=== PATIENT | female | born 1970 | race Asian ===

== ENCOUNTER 2020-02-20 04:15 | Inpatient (IN) | payer OTHER ==
[2020-02-19 15:24] VITALS: BMI 27.3
--- OUTSIDE RECORDS SUMMARY | 2020-02-20 04:18 | XMS ---
:1970 [facility] Support Name Relationship Address Phone [facility] Unavailable [phone] [place] [address] [facility] [place] [address] PAUL FRAZIER [phone] [place] [address] Re-disclosure Warning The records that you are about to access may contain information from federally- assisted alcohol or drug abuse programs. If such information is present, then the following federally mandated warning applies: This information has been disclosed to you from records protected by federal confidentiality rules (42 CFR part 2). The federal rules prohibit you from making any further disclosure of this information unless further disclosure is expressly permitted by the written consent of the person to whom it pertains or as otherwise permitted by 42 CFR part 2. A general authorization for the release of medical or other information is NOT sufficient for this purpose. The Federal rules restrict any use of the information to criminally investigate or prosecute any alcohol or drug abuse patient.The records that you are about to access may contain highly sensitive health information, the redisclosure of which is protected by Article 27-F of the [facility] Public Health law. If you continue you may haveaccess to information: Regarding HIV / AIDS; Provided by facilities licensed or operated by the [facility] Office of Mental Health; or Provided by the [facility] Office for People With Developmental Disabilities. If such information is present, then the following [facility] mandated warning applies: This information has been disclosed to you from confidential records which are protected by state law. State law prohibits you from making any further disclosure of this information without the specific written consent of the person to whom it pertains, or as otherwise permitted by law. Any unauthorized further disclosure in violation of state law may result in a fine or mcfp sentence or both. A general authorization for the release of medical or other information is NOT sufficient authorization for further disclosure. Insurance Providers Payer name Policy type Policy ID Covered Covered libertarian's Policy P abimbola / Coverage libertarian ID relationship to [facility] [employer] ormation type fraser LOCAL [id number] - [id number] [facility] Results ID Date Data Source [id number] 02/16/2020 11:15:00 AM EDT [facility] Name Value Range Interpretation Description Data Sup porting Code Source(s) Document(s ) SARS [facility] coronavirus 2 RNA This lab was ordered by [facility] and reported by [facility]. Procedure
[2020-02-20] MEDS ORDERED: ROCURONIUM BROMIDE 50 MG/5 ML SYRINGE ONE (07:43)
[2020-02-20] MEDS ORDERED: PROPOFOL 20 ML ONE ×2 (07:43)
[2020-02-20] MEDS ORDERED: ROPIVACAINE HCL 0.5% 30ML VIAL ONE (07:51)
[2020-02-20] MEDS ORDERED: ONDANSETRON 4 MG/2 ML VIAL IVPUSH PRN ×2 (07:52→07:54)
[2020-02-20] MEDS ORDERED: PROMETHAZINE HCL 25 MG/1 ML VIAL IVPUSH PRN (07:52)
[2020-02-20] MEDS ORDERED: PROMETHAZINE HCL 25 MG/1 ML VIAL IVPB PRN (07:54)
[2020-02-20] MEDS ORDERED: DEXAMETHASONE SOD PHOSPHATE 4 MG/1 ML VIAL IVPUSH PRN (07:54)
[2020-02-20] MEDS ORDERED: MIDAZOLAM HCL 2 MG/2 ML SINGLE DOSE VIAL ONE ×2 (07:55)
[2020-02-20] MEDS ORDERED: LACTATED RINGERS SOLUTION 1,000 ML IV SCH (08:00)
[2020-02-20] MEDS ORDERED: HYDROmorphone *PCA* 10MG/50ML DISP.SYRIN PCA SCH (08:00)
--- NOTE | 2020-02-20 08:13 | HP ---
Admitting History and Physical - Primary Care Physician PCP: Jerald Francisco - Admission Chief Complaint: pain, menorrhagia, fibroids History of Present Illness: same History Source: Patient Limitations to Obtaining History: No Limitations - Past Medical History DISTRICT RANGER: No: Alzheimer's, CVA, Dementia, Migraine, Multiple Sclerosis, Peripheral Neuropathy, Parkinson's, Seizure, Syncope, TIA, Vertigo, Other Cardiovascular: No: AFIB, Aneurysm, Aortic Insufficiency, Aortic Stenosis, CAD, CHF, Deep Vein Thrombosis, HTN, Hyperlipdemia, VA, Mitral Insufficiency, Mitral Stenosis, Murmur, Pulmonary Hypertension, Other Pulmonary: No: Asthma, Bronchitis, Cancer, COPD, O2 Dependent, Pneumonia, Previously Intubated, Pulmonary Embolus, Pulmonary Fibrosis, Sleep Apnea, Other Gastrointestinal: No: Ascites, Cancer, Constipation, Crohn's Disease, Diverticulitis, Diverticulosis, Esophageal Varices, Gastritis, GERD, GI Bleed, Hemorrhoids, Hiatal Hernia, Inflamatory Bowel Disease, Irritable Bowel Disease, Pancreatitis, Peptic Ulcer Disease, Ulcerative Colitis, Other Hepatobiliary: No: Cirrhosis, Cholelithiasis, Cholecystitis, Choledocholithiasis, Hepatitis A, Hepatitis B, Hepatitis C, Other Renal/: No: Renal Failure, Renal Inusuff, BPH, Cancer, Hematuria, Hemodialysis, Neurogenic Bladder, Renal Calculi, UTI, Other Reproductive: No: Ectopic , Endometriosis, Fibroids, PID, Polycystic Ovary Syndrome, Postmenopausal, Other ...LMP: 02/17/20 ...: No Heme/Onc: No: Anemia, B12 Deficiency, Bleeding Disorder, Cancer, Current Chemotherapy, Current Radiation Therapy, Hemochromatosis, Hypercoaguable State, Myeloproliferative Synd, Sickle Cell Disease, Sickle Cell Trait, Thrombocytopenia, Other Infectious Disease: No: AIDS, C-Diff, Herpes Zoster, HIV, MRSA, STD's, Tuberculosis, VREF, Other Psych: No: Addictions, Anxiety, Bipolar, Depression, Panic, Psychosis, Schizophrenia, Other Musculoskeletal: No: Bursitis, Chronic low back pain, Hemiparesis, Hemiplegia, Osteoarthritis, Paraplegia, Other Rheumatology: No: Fibromyalgia, Gout, Lupus, Rheumatoid Arthritis, Sarcoidosis, Vasculitis, Other ENT: No: Allergic Rhinitis, Sinusitis, Other Endocrine: No: [place]'s Disease, [place]'s Disease, Diabetes Insipidus, Diabetes Mellitus, Hyperparathyroidism, Hyperthyroidism, Hypothyroidism, Osteopenia, SIADH, Other Dermatology: No: Basal Cell, Cellulitis, Eczema, Melanoma, Psoriasis, Squamous Cell, Other - Past Surgical History Past Surgical History: Yes: - Advance Directives Advance Directives: Yes: Living Will - Smoking History Smoking history: Never smoked - Alcohol/Substance Use Hx Alcohol Use: No History of Substance Use: reports: None - Social History Usual Living Arrangement: Yes: With Significant Other Do you think of yourself as: Straight/Heterosexual ADL: Independent History of Recent Travel: No Home Medications - Allergies Allergies/Adverse Reactions: Allergies Allergy/AdvReac Type Severity Reaction Status Date / Time No Known Allergies Allergy Verified 02/19/20 15:18 - Home Medications Home Medications: Ambulatory Orders Iron,Carbonyl [Feosol] 65 mg PO DAILY 02/19/20 Multivit-Min/FA/Lycopen/Lutein [Centrum Silver Tablet] 1 each PO DAILY 02/19/20 [place]-3 Fatty Acids/Fish Oil [Fish Oil 1,000 mg Capsule] 1 each PO DAILY 02/19/20 Spironolactone [Aldactone] 50 mg PO BID 02/19/20 Family Medical History Family History: Denies Review of Systems - Review of Systems Constitutional: reports: No Symptoms Eyes: reports: No Symptoms HENT: reports: No Symptoms Neck: reports: No Symptoms Cardiovascular: reports: No Symptoms Respiratory: reports: No Symptoms Gastrointestinal: reports: No Symptoms Genitourinary: reports: No Symptoms Breasts: reports: No Symptoms Reported Musculoskeletal: reports: No Symptoms Integumentary: reports: No Symptoms Neurological: reports: No Symptoms Endocrine: reports: No Symptoms Hematology/Lymphatic: reports: No Symptoms Psychiatric: reports: No Symptoms Physical Examination Vital Signs: Vital Signs Temperature 98.0 F 02/20/20 06:32 Pulse Rate 87 02/20/20 06:32 Respiratory Rate 20 02/20/20 06:32 Blood Pressure 135/86 02/20/20 06:32 O2 Sat by Pulse Oximetry (%) 99 02/20/20 06:32 Constitutional: Yes: Well Nourished, No Distress, Calm Eyes: Yes: WNL, Conjunctiva Clear, EOM Intact HENT: Yes: WNL, Atraumatic, Normocephalic Neck: Yes: WNL, Supple, Trachea Midline Cardiovascular: Yes: WNL, Regular Rate and Rhythm Respiratory: Yes: WNL, Regular, CTA Bilaterally Gastrointestinal: Yes: WNL, Normal Bowel Sounds, Soft ...Rectal Exam: Yes: WNL Renal/: Yes: WNL Breast(s): Yes: WNL Musculoskeletal: Yes: WNL Extremities: Yes: WNL Edema: No Integumentary: Yes: WNL Wound/Incision: Yes: Clean/Dry, Well Approximated Neurological: Yes: WNL, Alert, Oriented ...Motor Strength: WNL Psychiatric: Yes: WNL, Alert, Oriented Assessment/Plan for hysterectomy
[2020-02-20] MEDS ORDERED: LIDOCAINE HCL/PF 2% SDV 5ML VIAL ONE (08:37)
[2020-02-20] MEDS ORDERED: ceFAZolin SODIUM 1 GM VIAL ONE (08:45)
[2020-02-20] MEDS ORDERED: SODIUM CHLORIDE 0.9% P/F 10 ML VIAL IJ ONE (08:45)
[2020-02-20] MEDS ORDERED: ceFAZolin SODIUM 1 GM VIAL IVPB ONE (08:47)
[2020-02-20] MEDS ORDERED: DEXAMETHASONE SOD PHOSPHATE 4 MG/1 ML VIAL ONE (08:48)
[2020-02-20] MEDS ORDERED: GLYCOPYRROLATE 0.2 MG/1 ML VIAL ONE (09:34)
[2020-02-20] MEDS ORDERED: NEOSTIGMINE METHYLSULFATE 0.5 MG/ML - 10 ML MDV ONE (09:34)
[2020-02-20] MEDS ORDERED: KETOROLAC TROMETHAMINE 30 MG/1 ML VIAL ONE (09:37)
--- NOTE | 2020-02-20 10:05 | PN ---
Progress Note (short form) - Note Progress Note: I assisted Dr. Francisco at the hysterectomy for the entirety of the case.
[2020-02-20] MEDS ORDERED: oxyCODONE HCL 5 MG TABLET PO PRN ×2 (10:14)
[2020-02-20] MEDS ORDERED: ACETAMINOPHEN 325 MG TABLET (FP) PO PRN (10:14)
--- NOTE | 2020-02-20 10:26 | OP ---
Operative Note - Note: Operative Date: 02/20/20 Pre-Operative Diagnosis: fibroids, menorrhagia, pelvic pain Operation: supra cervical abd hysterectomy, salpingectomies x 2 Findings: adhesion , multiple fibroids Post-Operative Diagnosis: Same as Pre-op Surgeon: Jerald Francisco Team Manager: Robby Lynn Anesthesiologist/REINFORCEMENT MAKER: Cleve Carmona Anesthesia: General Estimated Blood Loss (mls): 150 (no complications ) Operative Report Dictated: Yes
[2020-02-20] MEDS ORDERED: HYDROmorphone *PCA* 10MG/50ML DISP.SYRIN ONE (10:30)
[2020-02-20] MEDS: LACTATED RINGERS SOLUTION 1,000 ML/1,000 ML INFUS.BAG IV SCH (16:30)
[2020-02-20] MEDS ORDERED: CEFAZOLIN 2 GM in DEXTROSE 5%-WATER - 100 ML IVPB SCH (18:00)
[2020-02-20] MEDS ORDERED: PCA PUMP NR ONE (18:39)
[2020-02-20] MEDS: CEFAZOLIN 2 GM/D5W 2 GM/50 ML ML IVPB SCH (18:42)
[2020-02-21] MEDS: CEFAZOLIN 2 GM/D5W 2 GM/50 ML ML IVPB SCH (01:31)
[2020-02-21] MEDS: LACTATED RINGERS SOLUTION 1,000 ML/1,000 ML INFUS.BAG IV SCH ×2 (01:31→09:45)
--- NOTE | 2020-02-21 07:39 | PN ---
Progress Note (short form) - Note Progress Note: pod 1, doing well, positive bs, wound is clean, no bleeding, will be oob today
--- NOTE | 2020-02-21 08:27 | PN ---
Progress Note (short form) - Note Progress Note: Anesthesia postop note 49 y/o F s/p GA/TAP blocks/wood gouger for KAUSHIK/salpingectomies POD#1, vss, aaox3, pain well controlled, tolerating po D/C wood gouger No anesthesia complications.
[2020-02-21] MEDS ORDERED: PCA PUMP NR ONE (17:14)
[2020-02-21] MEDS: IBUPROFEN 800 MG/8 ML IJ IVPB PRN (19:55)
[2020-02-22] MEDS: IBUPROFEN 800 MG/8 ML IJ IVPB PRN (03:55)
--- NOTE | 2020-02-22 08:39 | PN ---
Progress Note (short form) - Note Progress Note: pod 2, doing cindy adams pt home today
--- NOTE | 2020-02-22 08:41 | DS ---
Physical Examination Vital Signs: Vital Signs Temperature 98.7 F 02/22/20 06:00 Pulse Rate 89 02/22/20 06:00 Respiratory Rate 18 02/22/20 06:00 Blood Pressure 119/75 02/22/20 02:00 O2 Sat by Pulse Oximetry (%) 97 02/22/20 06:00 Constitutional: Yes: Well Nourished, No Distress, Calm Eyes: Yes: WNL, Conjunctiva Clear, EOM Intact HENT: Yes: WNL, Atraumatic, Normocephalic Neck: Yes: WNL, Supple, Trachea Midline Cardiovascular: Yes: WNL, Regular Rate and Rhythm Respiratory: Yes: WNL, Regular, CTA Bilaterally Gastrointestinal: Yes: WNL, Normal Bowel Sounds, Soft ...Rectal Exam: Yes: WNL Renal/: Yes: WNL Breast(s): Yes: WNL Musculoskeletal: Yes: WNL Extremities: Yes: WNL Edema: No Peripheral Pulses WNL: Yes Integumentary: Yes: WNL Wound/Incision: Yes: Clean/Dry, Well Approximated Neurological: Yes: WNL, Alert, Oriented ...Motor Strength: WNL Psychiatric: Yes: WNL, Alert, Oriented Discharge Summary Problems reviewed: Yes Reason For Visit: LEIOMYOMA OF UTERUS, UNSPECIFIED Procedures: Principal: abd hysterectomy, supracervical Health Concerns: none Condition: Good - Instructions Diet, Activity, Other Instructions: Dr. horne Sales Receptionist discharge instructions Physical activity Resume your normal everyday activity as tolerated no heavy lifting or exercise until seen by your surgeon. You may walk unlimited figueroa of and climb stairs. You may resume driving the car when you feel safe and comfortable behind the wheel. No sexual activity as instructed by Dr. horne Wound care If you have a bandage, leave it on, and keep dry for 48-72 hours. After that time discard the outer bandage. If they are tapes on the skin under the out of bandage leave them in place. They will peel off in the next 7 to 10 days. Do Not Peel them off. You may shower the day after surgery. If there are tapes present on the skin, you may shower over them. Diet There are no dietary restrictions. Eat healthy, high-fiber foods. Drink 6 to 8 glasses of liquid each day. This will assist in keeping your bowels are regular. Pain management You may take Tylenol or acetaminophen or Ibuprofen (for example, Motrin, Advil etc.) from my pain prescription medication is ordered should be taken as prescribed for moderate to severe pain. Call Dr. horne for any of the following: Severe pain not relieved by medication Fever of 101 or higher Excessive bleeding or drainage on dressing Inability to urinate Call the office at [phone] an appointment in 14 days. Disposition: HOME - Home Medications Comprehensive Discharge Medication List: Ambulatory Orders Iron,Carbonyl [Feosol] 65 mg PO DAILY 02/19/20 Multivit-Min/FA/Lycopen/Lutein [Centrum Silver Tablet] 1 each PO DAILY 02/19/20 [place]-3 Fatty Acids/Fish Oil [Fish Oil 1,000 mg Capsule] 1 each PO DAILY 02/19/20 Spironolactone [Aldactone] 50 mg PO BID 02/19/20 Prescription Drug Monitoring Program (I-STOP) results: I-STOP reviewed and no issues identified
[2020-02-22 09:00] LABS: BASO % 0.4 % (0-2.0); EOS % 1.7 % (0-4.5); HEMOGLOBIN 10.2 GM/dL (10.7-15.3); LYMPH % 14.3 % (8-40); MEAN CELL VOLUME 87.8 fl (80-96); MEAN PLT VOLUME 8.8 fl (7.5-11.1); MONO % 10.8 % (3.8-10.2); NEUT % 72.8 % (42.8-82.8); PLATELET COUNT 213 K/MM3 (134-434); RBC 3.53 M/mm3 (3.60-5.2); RDW 13.4 % (11.6-15.6); WHITE BLOOD COUNT 6.5 K/mm3 (4.0-10.0)
[2020-02-22 10:22] VITALS: BP 149/87; PULSE 90; TEMP 99.2
--- NOTE | 2020-02-22 17:46 | PATH ---
Surgical Pathology Report Patient Name: MARIJA FRAZIER [facility]. Rec. #: [id number] /Age/Gender: 1970 (Age: 49) / F Account: [id number] Location: [address] [place] [address]/[facility] Taken: 02/20/2020 Received: 02/20/2020 Reported: 02/22/2020 Physicians: Jerald Francisco MD Specimen(s) Received UTERUS, CERVIX, BILATERAL FALLOPIAN TUBES Clinical History Leiomyoma of uterus, unspecified Final Diagnosis UTERUS, PORTION OF CERVIX, BILATERAL FALLOPIAN TUBES, SUPRACERVICAL HYSTERECTOMY AND BILATERAL SALPINGECTOMY: LEIOMYOMATA. PROLIFERATIVE TYPE ENDOMETRIUM. BILATERAL FALLOPIAN TUBES WITH PARATUBAL CYSTS. PORTION OF ENDOCERVICAL TISSUE WITH ACUTE CERVICITIS AND NABOTHIAN CYST. Electronically Signed Monica Hughes M.D. Gross Description Received in formalin labeled "uterus, portion of cervix, bilateral fallopian tubes," is a 654 g supracervically amputated uterus with no attached adnexa. The bilateral fallopian tubes are separately received within the same container. The specimen measures 13 cm from anterior to posterior, 10 cm from superior to inferior and 8 cm from left to right. The serosa is jc-pink and smooth. The endometrial cavity measures 6.5 cm in length and 2.5 cm from cornu to cornu. There is a 2.0 x 1.0 x 0.6 cm jc-red endometrial polyp at the fundus. The remaining endometrium is jc-red and averages 0.1 cm in thickness. The myometrium displays multiple intramural nodules, measuring up to 8.5 cm in greatest dimension. The cut surface of the nodules is jc and rubbery with whorled architecture. No areas of hemorrhage or necrosis are identified. The remaining myometrium is jc-pink and averages 2.5 cm in thickness. The separately received, undesignated, fimbriated fallopian tubes average 0.6 cm in length. The outer surfaces are jc-red and smooth. Sectioning reveals unremarkable lumen. One of the fallopian tubes displays a 0.8 cm in greatest dimension attached paratubal cyst. Cleaner sections are submitted in 16 cassettes as follows: 1-cervical stump margin of resection; 2-base of endometrial polyp; 3-bisected remainder of endometrial polyp; 7-8-cttyuzldnv endomyometrium; 2-08-andjawp intramural nodule; 20-14-rgkfzrmepy intramural nodules; 13-arbitrarily designated fallopian tube 1 fimbria; 14-cross sections of arbitrarily designated fallopian tube 1; 15-arbitrarily designated fallopian tube 2 fimbria with paratubal cyst; 16-cross sections of arbitrarily designated fallopian tube 2. 02/20/2020 [facility]02/20/2020
--- NOTE | 2020-02-23 12:36 | OP ---
DATE OF OPERATION: 02/20/2020 PREOPERATIVE DIAGNOSIS: Menorrhagia, large fibroid uterus, and pelvic pain. POSTOPERATIVE DIAGNOSIS: Menorrhagia, large fibroid uterus, and pelvic pain, and adhesions and multiple fibroids. PROCEDURE: Supracervical abdominal hysterectomy, salpingectomy x2, and the ovaries were saved. SURGEON: Jerald Francisco MD LITHOGRAPHIC PLATE MAKER: Robby Lynn MD ANESTHESIOLOGIST: Cleve Carmona MD ANESTHESIA: General anesthesia. BLOOD LOSS: About 150 mL. INDICATION: Euzeo-exsbt-[id number]-old female patient has history of a large fibroid uterus, has been followed up with many years with fibroid uterus, and patient has persistent chronic pelvic pain and menorrhagia. Patient has been putting off this surgery for many years, and finally patient wanted to take the fibroid out because the pain is too intolerable. DESCRIPTION OF PROCEDURE: Patient was taken to the operating room and placed on the operating table in supine position. After general anesthesia was obtained, patient's abdomen and pelvis were prepped and draped in the usual sterile manner. Patient had abdominoplasty before and a before, so following same Pfannenstiel incision, the incision was made through skin and subcutaneous tissue until the fascia was nicked in the midline and fascia extended bilaterally. Intraperitoneal cavity was entered. At this time was encountered some slight adhesion of the bladder flap adhesed to the anterior lower segment of the uterus, about 14- to 16-week size fibroid uterus. So uterus was expelled outside of the abdominal cavity, then we proceeded to dissect the round ligament. Round ligament dissected on the right side and doubly transected and suture ligated. Good hemostasis. Then broad ligament was dissected down to the bladder reflection anteriorly and posterior to the uterosacral ligament area. The patient wanted to save her ovaries, so infundibulopelvic ligament was doubly transected and suture ligated. Good hemostasis. Both tubes were removed, but ovary was saved. We proceeded to skeletonize the uterine artery. Uterine artery was skeletonized, and we could visualize the uterine artery, then doubly transected and suture ligated with good hemostasis with a Adi clamp. Then we proceeded to hug the cervix. With a knife we transected the cardinal ligament by the cervix area to the half way of the cervix. Patient wanted to save part of her cervix. Good hemostasis by staying very close to the cervix and down to the cardinal ligament area. Same technique was applied to the right side of the tubes, and good hemostasis. No complication. Draining clear urine. Blood loss 150 mL. At that time good hemostasis. Both ovaries appeared to be within normal limits. Then the peritoneum was closed, fascia was closed, and skin was closed. Transferred to recovery room in stable condition. MD SHERYL MAHER/[id number]
== END 2020-02-22 14:35 | disposition home or self-care (01) | DRG 743 ==
LOC: J2C 04:15 → J6S 16:26
PROVIDERS: ADMIT Obstetrics & Gynecology; ATTEND Obstetrics & Gynecology
PROC: 0UT70ZZ Resection of Bilateral Fallopian Tubes, Open Approach (ICD-10-PCS; 2020-02-20)
PROC: 0UT90ZL Resection of Uterus, Supracervical, Open Approach (ICD-10-PCS; principal; 2020-02-20 08:00)
DX: D25.9 Leiomyoma of uterus, unspecified (principal); N92.0 Excessive and frequent menstruation with regular cycle; R10.2 Pelvic and perineal pain; N83.8 Other noninflammatory disorders of ovary, fallopian tube and broad ligament; N72 Inflammatory disease of cervix uteri; N88.8 Other specified noninflammatory disorders of cervix uteri
CPT/HCPCS: 36415; 84703; 85025; 86850; 86900; 86901; 86922; 88307-TC; 94010; 94760